=== PATIENT | male | born 1950 | race Caucasian/White ===

== ENCOUNTER 2016-11-16 09:44 | Emergency (ER) | payer OTHER ==
[2016-11-16 09:44] VITALS: BMI 20.3
== END 2016-11-16 10:27 | disposition left against medical advice (07) ==
LOC: C.ER 09:44
DX: M54.9 Dorsalgia, unspecified (principal); Z02.9 Encounter for administrative examinations, unspecified

== ENCOUNTER 2017-01-30 22:03 | Inpatient (IN) | payer MEDICAID, OTHER ==
[2017-01-30 22:03] VITALS: BMI 20.3
--- NOTE | 2017-01-30 22:17 | C.PDOC ---
History Of Present Illness Patient presents to the ED via EMS for evaluation of alcohol intoxication for an unknown duration. Patient also states that he is depressed. He denies suicidal/homicidal ideation or plan at this time. Time Seen by Provider: 01/30/17 22:17 Chief Complaint (Nursing): Psychiatric Evaluation History Per: Patient History/Exam Limitations: intoxication Onset/Duration Of Symptoms: Unknown Current Symptoms Are (Timing): Still Present Suicide/Self Injury Attempted (Context): None Modifying Factor(s): Alcohol Severity: None Pain Scale Rating Of: 0 Associated Symptoms: Depression. denies: Suicidal Thoughts, Suicidal Plan Involuntary Hold By: None Recent travel outside of the [place]: No Additional History Per: Patient Past Medical History Reviewed: Historical Data, Nursing Documentation, Vital Signs Vital Signs: Last Vital Signs Temp 97.4 F L 01/31/17 03:03 Pulse 70 01/31/17 03:03 Resp 16 01/31/17 03:03 BP 115/74 01/31/17 03:03 Pulse Ox 99 01/31/17 03:03 - Medical History PMH: Depression, HTN (no medications) Surgical History: No Surg Hx - [facility] Procedures CLOSURE SKIN & SUBCUTANEOUS NEC (09/28/14) Family History: States: Unknown Family Hx - Social History Hx Tobacco Use: No Hx Alcohol Use: Yes Hx Substance Use: No - Immunization History Hx Tetanus Toxoid Vaccination: No Hx Influenza Vaccination: No Hx Pneumococcal Vaccination: No Review Of Systems Constitutional: Negative for: Fever, Chills Cardiovascular: Negative for: Chest Pain, Palpitations Respiratory: Negative for: Cough, Shortness of Breath Gastrointestinal: Negative for: Nausea, Vomiting, Abdominal Pain Skin: Negative for: Rash, Lesions, Jaundice, Bruising Neurological: Negative for: Weakness, Numbness Psych: Positive for: Depression. Negative for: Suicidal ideation Physical Exam - Physical Exam Appears: No Acute Distress, Other (visibly intoxicated ) Skin: Warm, Dry Head: Normacephalic Eye(s): bilateral: Normal Inspection Oral Mucosa: Moist, Other (alcohol on breath ) Neck: Supple Chest: Symmetrical Cardiovascular: Rhythm Regular, No Murmur Respiratory: No Rales, No Rhonchi, No Wheezing Extremity: Normal ROM Extremity: Bilateral: Atraumatic Neurological/Psych: Other (arousable to touch and verbal stimuli ) Gait: Unsteady ED Course And Treatment - Laboratory Results Result Diagrams: 01/30/17 22:27 01/30/17 22:27 O2 Sat by Pulse Oximetry: 96 (on RA ) Pulse Ox Interpretation: Normal Progress Note: labs ordered and reviewed. Patient received Ativan PO. ED OBSERVATION Date of observation admission: 01/30/17 Time of observation admission: 22:32 - Observation admission statement Patient is being placed in observation because:: acute alcohol intoxication - Goals of Observation Goals of observation are:: sobriety, crisis evaluation - Progress Note Progress Note: 01/30/17 22:32 vitals stable 01/31/17 02:22 arousable Disposition Discussed With Dr.: Emil Cyr Comment: accepted the pt on his service and took over the care at 6:33 AM Counseled Patient/Family Regarding: Studies Performed, Diagnosis - Disposition Disposition: HOSPITALIZED Disposition Time: 22:17 Condition: FAIR - POA Present On Arrival: None - Clinical Impression Clinical Impression: Alcohol intoxication, Alcohol abuse, Major depression - Scribe Statement The provider has reviewed the documentation as recorded by the Scribe (Shalini Page) Provider Attestation: All medical record entries made by the Scribe were at my direction and personally dictated by me. I have reviewed the chart and agree that the record accurately reflects my personal performance of the history, physical exam, medical decision making, and the department course for this patient. I have also personally directed, reviewed, and agree with the discharge instructions and disposition. Decision To Admit - Pt Status Changed To: Hospital Disposition Of: Inpatient - Admit Certification Admit to Inpatient:: After my assessment, the patient will require hospitalization for at least two midnights. This is because of the severity of symptoms shown, intensity of services needed, and/or the medical risk in this patient being treated as an outpatient. - InPatient: Physician Admission Certification: I certify that this patient requires 2 or more midnights of care for the following reason:: After my assessment, the patient will require hospitalization for at least two midnights. This is because of the severity of symptoms shown, intensity of services needed, and/or the medical risk in this patient being treated as an outpatient. - . Bed Request Type: Psychiatry Admitting Physician: Emil Cyr Patient Diagnosis: Alcohol intoxication, Alcohol abuse, Major depression
[2017-01-30 22:30] LABS: BASO % 1.2 % (0.0-2.0); EOS # 0.1 K/uL (0.0-0.7); EOS % 2.7 % (0.0-4.0); HEMATOCRIT 37.5 % (35.0-51.0); LYMPH % 49.8 % (20.0-40.0); MEAN CELL VOLUME 94.5 fL (80.0-94.0); MEAN CORPUSCULAR HEMOGLOBIN 32.7 pg (27.0-31.0); MEAN CORPUSCULAR HGB CONC 34.7 g/dL (33.0-37.0); MEAN PLATELET VOLUME 7.2 fL (7.2-11.7); MONO # 0.5 K/uL (0.0-0.8); MONO % 11.2 % (0.0-10.0); RED CELL DISTRIBUTION WIDTH 13.4 % (11.5-14.5); WHITE BLOOD COUNT 4.1 K/uL (4.8-10.8)
[2017-01-30 22:38] LABS: CHLORIDE 105 mmol/L (98-107); POTASSIUM 3.8 mmol/L (3.6-5.2); SODIUM 147 mmol/L (132-148)
[2017-01-30 22:40] LABS: GFR AFRICAN-AMERICAN > 60
[2017-01-30 22:41] LABS: ALB/GLOB RATIO 1.5 (1.0-2.1); ALKALINE PHOSPHATASE 52 U/L (38-126); ALT/SGPT 45 U/L (21-72); AST/SGOT 54 U/L (17-59); BILIRUBIN,TOTAL 0.3 mg/dL (0.2-1.3); BLOOD UREA NITROGEN 7 mg/dL (9-20); CARBON DIOXIDE 25 mmol/L (22-30); GLUCOSE,RANDOM 90 mg/dL (75-110); TOTAL PROTEIN 7.3 g/dL (6.3-8.3)
[2017-01-30 22:42] LABS: ALCOHOL SERUM 276 mg/dl (0-10)
[2017-01-31 00:54] LABS: URINE BILIRUBIN NEGATIVE (NEGATIVE); URINE BLOOD NEGATIVE (NEGATIVE); URINE COLOR Straw (YELLOW); URINE GLUCOSE (UA) NORMAL (Normal); URINE KETONE NEGATIVE (NEGATIVE); URINE LEUKOCYTE ESTERASE NEG Leu/uL (Negative); URINE PROTEIN NEGATIVE (NEGATIVE); URINE UROBILINOGEN NORMAL mg/dL (0.2-1.0); WBC URINE < 1 /hpf (0-5)
[2017-01-31 06:47] VITALS: O2SAT 98
--- NOTE | 2017-01-31 08:34 | PCM.BM ---
<Trudy Fajardo - Last Filed: 01/31/17 08:31> Treatment Plan Problems - Problems identified on initial assessmt Depression Date Initiated: 01/31/17 Time Initiated: 08:31 Assessment reference: NA Status: Active Alcohol Abuse Date Initiated: 01/31/17 Time Initiated: 08:31 Assessment reference: NA Status: Active Treatment assets and liabiliti Patient Assests: cooperative, ADL independent, negotiates basic needs, cognitively intact Patient Liabilities: live alone, financial problems, substance abuse (Alcohol, BAL 276) - Milieu Protocol Maintain good personal hygiene: daily Encourage regular showers, daily Remind patient to perform daily oral care, other Assist patient to perform ADL's (Self) Conduct patient checks and document Observation sheet: Q15 minutes (Safety) Maintain personal safety: every shift Educate patient to report safety concerns to staff, every shift Monitor environment for contraband/sharps Medication safety: Monitor for expected outcome, potential side effects: every shift, Assess barriers to learning: every shift, Assess readiness for medication education: every shift <Emil Cyr - Last Filed: 01/31/17 21:44> - Diagnosis (1) Alcohol dependence Status: Acute Interventions: 01/31/17 21:44 Medication Motivation interview for abstinence CBT (2) Major depression, recurrent Status: Acute Interventions: 01/31/17 21:46 Medications Supportive therapy <Luanne Zavala - Last Filed: 02/01/17 10:41> Family Contact Family involvement: Family/SO is involved Family contact: Patient agrees to contact Family contact name: Austin Duenas-son Family contacted how many times per week?: 1 Family contact comment: Unable to contact pt's son. - Goals for Treatment Patient goals for treatment: "I want to go back to [place]." Patient's family/SO goals for treatment: Unknown Discharge/Continuing Care - Education Needs Education Needs: Patient Medication, Patient Coping Skills, Patient Placement options, Patient Community resources - Discharge Discharge Criteria: Tolerates medication w/o severe side effects, Free of Suicidal thoughts, No longer exhibiting s/s of withdrawal, Reduction of target symptoms Discharge to:: Home, With Family - Treatment Team Participation Discussed with Family/SO: No Was Patient/Family/SO present at Treatment Team Meeting: Yes <Kulwant Duarte - Last Filed: 02/01/17 10:50> - Diagnosis (1) Alcohol dependence Status: Acute Interventions: 01/31/17 21:44 Medication Motivation interview for abstinence CBT 02/01/17 10:49 * Assess 7x/week regarding severity of withdrawal * Educate regarding risks, benefits, side effects and alternatives of medications * Use Motivational Interviewing for abstinence * Use CBT for relapse prevention * Medication management for withdrawal symptoms * Encourage medication assisted treatment * (2) Major depression Status: Acute Interventions: 02/01/17 10:50 * Assess/adjust medications daily and /or as needed * See patient on an individual basis 7x/week to assess symptoms of depression * Monitor for side effects & effectiveness of medications *
--- NOTE | 2017-01-31 21:38 | PCM.PSYCH ---
Initial Psychiatric Evaluation - Initial Psychiatric Evaluation Type of Admission: Voluntary Legal Status: Capacity Chief Complaint (in patient's own words): I want to go home History of Present Illness and Precipitating Events: Patient is a 66 years old male who was brought to the ER at [facility] ([facility]) by [facility] because of suicidal ideations, depression and alcohol drinking. Patient was a poor historian and was very difficult to obtain history from him. Patient was evaluated using translation form for French as patient was unable to explain in Albanian. According to history patient was depressed and expressed suicidal ideations when he was sober and requested for admission. .Today patient denied for any depression or suicidal ideations and requesting discharge from the hospital. Patient was very guarded, was not providing any details about drinking Alcohol, depression or suicidal ideations or any other psychiatric symptoms. Patient was very uncooperative. Current Medications: Active Medications Generic Name Dose Route Start Last Admin Trade Name Freq PRN Reason Stop Dose Admin Lorazepam 1 mg 01/31/17 12:07 01/31/17 21:05 Ativan PO 1 mg Q6 PRN Administration Anxiety Pneumococcal Polyvalent Vaccine 0.5 ml 02/03/17 10:00 Pneumovax 23 Vaccine IM 02/03/17 10:01 .ONCE ONE Past Psychiatric History - Past Psychiatric History History of Abuse: None reported History of ETOH/Drug Use: See HPI History of Family Illness: Reported history of alcohol use in his family Pertinent Medical Hx (Current Medical&Sleep Prob, Allergies): Allergies Allergy/AdvReac Type Severity Reaction Status Date / Time No Known Allergies Allergy Verified 01/30/17 22:15 No Known Home Med 06/21/15 Review of Systems - Psychiatric Psychiatric: Depression Mental Status Examination - Personal Presentation Personal Presentation: Looks stated age - Affect Affect: Depressed - Motor Activity Motor Activity: Calm - Reliability in Providing Information Reliability in Providing Information: Fair - Speech Speech: Disorganized - Mood Mood: Depressed - Formal Thought Process Formal Thought Process: Flight of ideas - Hallucinations/Delusions Hallucinations: Other (None report) Delusions: Other - Obsessions/Compulsions Obsessions: None Compulsions: None - Cognitive Functions Orientation: Person, Place, Time Sensorium: Alert Attention/Concentration: Attentive Abstract Thinking: [place] Estimate of Intelligence: Average Judgement: Intact, as evidence by: Other Memory: Recent intact, as evidence by: 3/3 object recall, Remote intact, as evidenced by: Ability to recall historical events - Risk Risk: Withdrawal, Diminished functioning - Strength & Assets Inventory Strength & Assets Inventory: Family support (Lives with his son) - Limitations Limitations: Other DSM 5 DX - DSM 5 DSM 5 Diagnosis: Alcohol use disorder severe Major depressive disorder recurrent severe - Recommended/Plan of Treatment Treatment Recommendations and Plan of Treatment: Patient education Supportive therapy Will start Celexa for depression Librium detox protocol for alcohol withdrawal symptoms Multivitamin Folic acid Thiamine Other as needed medication Projected ELOS: 8-10 days - Smoking Cessation Smoking Cessation Initiated: No
[2017-02-01 07:58] VITALS: BP 125/87; PULSE 111; RESP 18; TEMP 97.7
[2017-02-01] MEDS ORDERED: Multiple Vitamins Tab PO SCH (10:00)
--- NOTE | 2017-02-01 10:48 | PCM.PYCHDC ---
Mental Status Examination - Mental Status Examination Orientation: Person, Place, Situation, Time Discharge Summary - Discharge Note Consultations:: List each consultation separately and include: 1. Reason for request. 2. Findings. 3. Follow-up Summary of Hospital Course include:: 1. Description of specific treatment plan utilized for patients during their course of treatmen. 2. Summarize the time- course for resolution of acute symptoms and/or regressed behaviors. 3. Describe issues identified and worked on during hospitalization. 4. Describe medication utilized. 5. Describe medical problems identified and treated. 6. Reassessment of suicide risk - Final Diagnosis (DSM 5) Condition upon Discharge: FAIR Disposition: HOME/ ROUTINE
[2017-02-03] MEDS ORDERED: Pneumococcal 23-Valent Vaccine IM ONE (10:00)
== END 2017-02-01 11:30 | disposition home or self-care (01) | DRG 750 ==
LOC: C.ER 22:03 → C.9OBSV 22:31 → OBSVTOIN 01-31 06:32 → C.9E 01-31 06:40 → C.5E 01-31 07:51
DX: F10.220 Alcohol dependence with intoxication, uncomplicated (principal); F33.2 Major depressive disorder, recurrent severe without psychotic features; R45.851 Suicidal ideations; I10 Essential (primary) hypertension; Y90.8 Blood alcohol level of 240 mg/100 ml or more

== ENCOUNTER 2017-04-20 09:09 | Emergency (ER) | payer MEDICAID, OTHER ==
[2017-04-20 09:09] VITALS: BMI 20.3
[2017-04-20 09:20] VITALS: TEMP 98.2
[2017-04-20] MEDS ORDERED: Sodium Chloride 0.9% 1,000 ML IV ONE (09:41)
[2017-04-20] MEDS ORDERED: Sodium Chloride 0.9% 1,000 ML ONE (09:48)
[2017-04-20 10:01] LABS: HEMATOCRIT 39.7 % (35.0-51.0); LYMPH # 0.7 K/uL (1.0-4.3); LYMPH % 15.3 % (20.0-40.0); MEAN CELL VOLUME 95.8 fL (80.0-94.0); MEAN CORPUSCULAR HEMOGLOBIN 32.6 pg (27.0-31.0); MEAN PLATELET VOLUME 7.4 fL (7.2-11.7); MONO # 0.4 K/uL (0.0-0.8); MONO % 9.1 % (0.0-10.0); NRBC % 0.1 % (0.0-2.0); WHITE BLOOD COUNT 4.3 K/uL (4.8-10.8)
[2017-04-20 10:23] VITALS: RESP 20
[2017-04-20 10:28] LABS: ALKALINE PHOSPHATASE 50 U/L (38-126); ALT/SGPT 60 U/L (21-72); AST/SGOT 59 U/L (17-59); BLOOD UREA NITROGEN 11 mg/dL (9-20); CALCIUM 8.9 mg/dl (8.6-10.4); CARBON DIOXIDE 28 mmol/L (22-30); CHLORIDE 101 mmol/L (98-107); GFR AFRICAN-AMERICAN > 60; GLUCOSE,RANDOM 98 mg/dL (75-110); POTASSIUM 3.3 mmol/L (3.6-5.2); SODIUM 139 mmol/L (132-148); TOTAL PROTEIN 8.3 g/dL (6.3-8.3)
[2017-04-20 10:29] LABS: ALB/GLOB RATIO 1.2 (1.0-2.1)
[2017-04-20] MEDS ORDERED: Iodixanol 320 MG/ML 100 ML BOTTLE IV ONE (10:38)
--- NOTE | 2017-04-20 10:42 | C.PDOC ---
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 Patient states he was carrying a heavy bag when developed pain over the right groin associated with swelling " something was popping out". Pt admits, similar sx in past and have been intermittent for the past few weeks. Otherwise, Patient denies known direct trauma or injury, headache, dizziness, fever, chest pain, SOB, abd. pain, nausea, vomiting, diarrhea, back pain, UTI sx, incontinence, saddle anesthesia, denies weakness or numbness to B/L LEs. At the time of evaluation, pt appears comfortable, not in any apparent distress. Time Seen by Provider: 04/20/17 09:15 Chief Complaint (Nursing): Groin Pain History Per: Patient History/Exam Limitations: no limitations Onset/Duration Of Symptoms: Sudden Onset (TECHNOLOGY TRAINER) Past Medical History Reviewed: Historical Data, Nursing Documentation, Vital Signs Vital Signs: Last Vital Signs Temp 98.2 F 04/20/17 09:12 Pulse 74 04/20/17 11:40 Resp 20 04/20/17 11:40 BP 169/81 H 04/20/17 11:40 Pulse Ox 98 04/20/17 12:35 - Medical History PMH: Depression, HTN (no medications) - [facility] Procedures CLOSURE SKIN & SUBCUTANEOUS NEC (09/28/14) Family History: States: No Known Family Hx - Social History Hx Tobacco Use: No Hx Alcohol Use: Yes (BAL 276) Hx Substance Use: No - Immunization History Hx Tetanus Toxoid Vaccination: No Hx Influenza Vaccination: No Hx Pneumococcal Vaccination: No Review Of Systems Except As Marked, All Systems Reviewed And Found Negative. Constitutional: Negative for: Fever Cardiovascular: Negative for: Chest Pain Respiratory: Negative for: Shortness of Breath Gastrointestinal: Negative for: Nausea, Vomiting, Abdominal Pain, Diarrhea Genitourinary: Positive for: Other ((+) Painful swelling over the right groin) Neurological: Negative for: Weakness, Numbness Physical Exam - Physical Exam Appears: Non-toxic, No Acute Distress Skin: Warm, Dry, No Rash Head: Normacephalic Eye(s): bilateral: PERRL Nose: No Flaring Oral Mucosa: Moist Throat: No Drooling Neck: Trachea Midline, Supple Cardiovascular: Rhythm Regular, No Murmur Respiratory: No Decreased Breath Sounds, No Accessory Muscle Use, No Rales, No Rhonchi, No Stridor, No Wheezing Gastrointestinal/Abdominal: Soft, No Tenderness, No Distention, No Guarding, No Rebound, No Hernia Back: No CVA Tenderness Male Genital: Inguinal Swelling (Right, reducible) Extremity: Normal ROM, No Pedal Edema, No Swelling Neurological/Psych: Oriented x3, Normal Speech, Normal Motor, Normal Sensation, Normal Reflexes ED Course And Treatment - Laboratory Results Result Diagrams: 04/20/17 09:56 04/20/17 09:56 Lab Interpretation: Normal O2 Sat by Pulse Oximetry: 98 (RA) Pulse Ox Interpretation: Normal - CT Scan/US CT - Abd & Pelvis w/ IV Contrast Other Rad Studies (CT/US): Read By Radiologist, Radiology Report Reviewed CT/US Interpretation: PROCEDURE: CT Abdomen and Pelvis with contrast. HISTORY : abd pain. COMPARISON: None available. TECHNIQUE: Contrast dose: 100 cc Visipaque 320. Radiation dose: Total exam DLP = 387.57 mGy-cm. This CT exam was performed using one or more of the following dose reduction techniques: Automated exposure control, adjustment of the mA and/or kV according to patient size, and/or use of iterative reconstruction technique. FINDINGS: LOWER THORAX : No visible consolidation, pleural effusion, or pneumothorax. LIVER: Unremarkable unenhanced appearance. GALLBLADDER AND BILE DUCTS: Unremarkable unenhanced appearance. PANCREAS: Unremarkable unenhanced appearance. SPLEEN: Sub cm probable splenules. Unremarkable unenhanced appearance. ADRENALS: Unremarkable unenhanced appearance. KIDNEYS AND URETERS: The kidneys enhance symmetrically. No hydronephrosis or obstructing calculus identified. Two probable right renal cysts including a renal cyst containing 5 mm associated calcification. VASCULATURE: No aortic aneurysm. BOWEL: Stomach is nondistended. Lack of oral contrast limits evaluation for bowel pathology. Bowel loops appear within normal limits of caliber without evidence of obstruction. APPENDIX: The appendix appears within normal limits of caliber. No secondary signs of acute appendicitis. PERITONEUM: No significant free fluid. No definite free air. LYMPH NODES: No bulky adenopathy. BLADDER: Unremarkable. REPRODUCTIVE: Heterogeneous prostate gland with coarse calcifications. BONES: Mild degenerative changes. OTHER FINDINGS: None. IMPRESSION: Two probable right renal cysts including renal cysts which contains 5 mm associated calcification. Heterogeneous prostate gland contains close calcifications. Recommend correlation with PSA. Additional incidental findings as above. Progress Note: On re-eval, pt is afebrile, hemodynamicaly stable. NOn-toxic. Tolerate PO well in ED. Neck: SUpple,. Lungs: CTA B/L, BS equal B/L. CVS: (+) S1S2, reg. Abd: Benign, (-) guarding, (-) rebound. Back: (-) CVA tenderness. Blood work review- karen cute abnoramlities. CT abd/plevis- no acute findings. Pt has clinical findings c/w Right inguinal hernia, reducible. Pt advised. ref. to F/u with PMD, Surgery in 2-3 days for re-eavl. return to ED if any worsening ro new changes. Medical Decision Making Medical Decision Making: Plan: * CT - Abd & Pelvis w/ IV Contrast * CBC * CMP * Urinalysis * Toradol IVP * Sodium Chloride IV Disposition Counseled Patient/Family Regarding: Diagnosis, Need For Followup, Rx Given - Disposition Referrals: [facility] [Outside] Mahesh Jennings MD [Staff Provider] - Disposition: HOME/ ROUTINE Disposition Time: 11:48 Condition: STABLE Additional Instructions: AVOID HEAVY LIFTING SUPPORTIVE UNDER RUVALCABA FOLLOW UP WITH PMD, SURGERY IN 2-3 DAYS FOR FURTHER EVALUATION AND ELECTIVE SURGERY RETURN TO ED IF ANY WORSENING OR NEW CHANGES. 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 - Scribe Statement The provider has reviewed the documentation as recorded by the Scribe Erica Castro All medical record entries made by the Scribe were at my direction and personally dictated by me. I have reviewed the chart and agree that the record accurately reflects my personal performance of the history, physical exam, medical decision making, and the department course for this patient. I have also personally directed, reviewed, and agree with the discharge instructions and disposition.
[2017-04-20 11:40] VITALS: BP 169/81; PULSE 74
[2017-04-20 11:45] VITALS: O2SAT 98
[2017-04-20 11:45] LABS: RBC URINE < 1 /hpf (0-3); URINE BILIRUBIN NEGATIVE (NEGATIVE); URINE BLOOD NEGATIVE (NEGATIVE); URINE COLOR Straw (YELLOW); URINE GLUCOSE (UA) NORMAL (Normal); URINE KETONE NEGATIVE (NEGATIVE); URINE LEUKOCYTE ESTERASE NEG Leu/uL (Negative); URINE PROTEIN NEGATIVE (NEGATIVE); URINE UROBILINOGEN NORMAL mg/dL (0.2-1.0); WBC URINE 1 /hpf (0-5)
--- NOTE | 2017-04-20 11:46 | CT ---
PROCEDURE: CT Abdomen and Pelvis with contrast HISTORY: abd pain COMPARISON: None available TECHNIQUE: Contrast dose: 100 cc Visipaque 320 Radiation dose: Total exam DLP = 387.57 mGy-cm. This CT exam was performed using one or more of the following dose reduction techniques: Automated exposure control, adjustment of the mA and/or kV according to patient size, and/or use of iterative reconstruction technique. FINDINGS: LOWER THORAX: No visible consolidation, pleural effusion, or pneumothorax. LIVER: Unremarkable unenhanced appearance. GALLBLADDER AND BILE DUCTS: Unremarkable unenhanced appearance. PANCREAS: Unremarkable unenhanced appearance. SPLEEN: Sub cm probable splenules. Unremarkable unenhanced appearance. ADRENALS: Unremarkable unenhanced appearance. KIDNEYS AND URETERS: The kidneys enhance symmetrically. No hydronephrosis or obstructing calculus identified. Two probable right renal cysts including a renal cyst containing 5 mm associated calcification. VASCULATURE: No aortic aneurysm. BOWEL: Stomach is nondistended. Lack of oral contrast limits evaluation for bowel pathology. Bowel loops appear within normal limits of caliber without evidence of obstruction. APPENDIX: The appendix appears within normal limits of caliber. No secondary signs of acute appendicitis. PERITONEUM: No significant free fluid. No definite free air. LYMPH NODES: No bulky adenopathy. BLADDER: Unremarkable. REPRODUCTIVE: Heterogeneous prostate gland with coarse calcifications. BONES: Mild degenerative changes. OTHER FINDINGS: None. IMPRESSION: Two probable right renal cysts including renal cysts which contains 5 mm associated calcification. Heterogeneous prostate gland contains close calcifications. Recommend correlation with PSA. Additional incidental findings as above.
[2017-04-20] MEDS ORDERED: Potassium Chloride 20 mEq ER Tab PO STA (11:53)
[2017-04-20] MEDS ORDERED: Potassium Chloride 20 mEq ER Tab PO ONE (11:56)
== END 2017-04-20 12:18 | disposition home or self-care (01) ==
LOC: C.ER 09:09
DX: K40.90 Unilateral inguinal hernia, without obstruction or gangrene, not specified as recurrent (principal); E87.6 Hypokalemia
CPT/HCPCS: 74177; 80053; 81001; 83690; 85025; 85610; 85730; 96361; 96374; 99284; J1885; J7040; Q9967

== ENCOUNTER 2017-09-21 10:49 | Emergency (ER) | payer OTHER ==
[2017-09-21 10:49] VITALS: BMI 20.3
[2017-09-21 10:56] VITALS: BP 157/102; PULSE 106; RESP 18; TEMP 98.3; O2SAT 97
--- NOTE | 2017-09-21 11:36 | C.PDOC ---
History Of Present Illness 66-year-old male, presents to the emergency department with complaints of diffuse rash throughout body since yesterday afternoon. Patient reports associated itching. Patient denies any nausea/vomiting, fever. Time Seen by Provider: 09/21/17 10:58 Chief Complaint (Nursing): Abnormal Skin Integrity History Per: Patient History/Exam Limitations: no limitations Onset/Duration Of Symptoms: Days Current Symptoms Are (Timing): Still Present Past Medical History Reviewed: Historical Data, Nursing Documentation, Vital Signs Vital Signs: Last Vital Signs Temp 98.3 F 09/21/17 10:52 Pulse 106 H 09/21/17 10:52 Resp 18 09/21/17 10:52 BP 157/102 H 09/21/17 10:52 Pulse Ox 97 09/21/17 11:36 - Medical History PMH: Depression, HTN (no medications) Denies: Diabetes, Hepatitis, HIV, Chronic Kidney Disease, Seizures, Sexually Transmitted Disease - [facility] Procedures CLOSURE SKIN & SUBCUTANEOUS NEC (09/28/14) Family History: States: No Known Family Hx - Social History Hx Tobacco Use: No Hx Alcohol Use: Yes Hx Substance Use: No - Immunization History Hx Tetanus Toxoid Vaccination: No Hx Influenza Vaccination: No Hx Pneumococcal Vaccination: No Review Of Systems Constitutional: Negative for: Fever, Chills Cardiovascular: Negative for: Chest Pain, Palpitations Respiratory: Negative for: Shortness of Breath Gastrointestinal: Negative for: Vomiting Skin: Positive for: Rash Neurological: Negative for: Headache, Dizziness Physical Exam - Physical Exam Appears: Non-toxic, No Acute Distress Skin: Normal Color, Warm, Dry, Rash (diffuse, maculopapular rash to back, abdomen and extremities. sparing palms and soles) Head: Normacephalic Eye(s): bilateral: PERRL Nose: Normal Oral Mucosa: Moist Tongue: No Swelling Lips: Normal Appearing, No Swelling Throat: No Drooling, No Mass Neck: Normal ROM Chest: Symmetrical Cardiovascular: Rhythm Regular, No Murmur Respiratory: Normal Breath Sounds, No Accessory Muscle Use Gastrointestinal/Abdominal: Soft, No Tenderness Extremity: Normal ROM, No Deformity, No Swelling Neurological/Psych: Oriented x3, Normal Speech ED Course And Treatment O2 Sat by Pulse Oximetry: 97 (RA) Pulse Ox Interpretation: Normal Progress Note: Patient eloped prior to treatment. Disposition - Disposition Disposition: ELOPEMENT - ER ONLY Disposition Time: 11:35 Condition: STABLE Forms: [facility] (Chinese) - Clinical Impression Clinical Impression: Maculopapular rash - Scribe Statement The provider has reviewed the documentation as recorded by the Scribe (Germain Nelson) All medical record entries made by the Scribe were at my direction and personally dictated by me. I have reviewed the chart and agree that the record accurately reflects my personal performance of the history, physical exam, medical decision making, and the department course for this patient. I have also personally directed, reviewed, and agree with the discharge instructions and disposition.
== END 2017-09-21 11:50 | disposition left against medical advice (07) ==
LOC: C.ER 10:49
DX: R21 Rash and other nonspecific skin eruption (principal)

== ENCOUNTER 2017-12-27 09:20 | Emergency (ER) | payer MEDICARE, OTHER ==
[2017-12-27 09:20] VITALS: BMI 20.3
[2017-12-27 09:31] VITALS: BP 115/80; PULSE 86; RESP 20; TEMP 97.4; O2SAT 98
--- NOTE | 2017-12-27 10:05 | C.PDOC ---
History Of Present Illness 67 year old male presents to the emergency department with complaints of intermittent groin pain that has been present for the past 3 months. The patient states the pain has worsened last night and noticed a bulge in the groin area but he reports he was able to push it back in. Patient denies any nausea, vomiting, dysuria, penile discharge, fever, or chills. Time Seen by Provider: 12/27/17 09:44 Chief Complaint (Nursing): Groin Pain History Per: Patient History/Exam Limitations: no limitations Onset/Duration Of Symptoms: Days Current Symptoms Are (Timing): Still Present Past Medical History Reviewed: Historical Data, Nursing Documentation, Vital Signs Vital Signs: Last Vital Signs Temp 97.4 F L 12/27/17 09:34 Pulse 86 12/27/17 09:34 Resp 20 12/27/17 09:34 BP 115/80 12/27/17 09:34 Pulse Ox 98 12/27/17 10:26 - Medical History PMH: Depression, HTN (no medications) Denies: Diabetes, Hepatitis, HIV, Chronic Kidney Disease, Seizures, Sexually Transmitted Disease - [facility] Procedures CLOSURE SKIN & SUBCUTANEOUS NEC (09/28/14) Family History: States: No Known Family Hx - Social History Hx Tobacco Use: No Hx Alcohol Use: Yes Hx Substance Use: No - Immunization History Hx Tetanus Toxoid Vaccination: No Hx Influenza Vaccination: No Hx Pneumococcal Vaccination: No Review Of Systems Except As Marked, All Systems Reviewed And Found Negative. Genitourinary: Positive for: Other (Intermittent groin pain) Physical Exam - Physical Exam Appears: Non-toxic, No Acute Distress Skin: Normal Color, Warm, Dry Head: Atraumatic, Normacephalic Eye(s): bilateral: Normal Inspection, PERRL, EOMI Oral Mucosa: Moist Neck: Supple Chest: Symmetrical Cardiovascular: Rhythm Regular, No Murmur Respiratory: Normal Breath Sounds, No Rales, No Rhonchi, No Wheezing Gastrointestinal/Abdominal: Normal Exam, Soft, No Tenderness Male Genital: Other (Both testes distended; normal penile shaft; no lesions; R side hernia reducible ) Extremity: Bilateral: Atraumatic, Normal Color And Temperature, Normal ROM Neurological/Psych: Oriented x3, Normal Speech ED Course And Treatment O2 Sat by Pulse Oximetry: 98 (RA) Pulse Ox Interpretation: Normal Progress Note: Hernia case was discussed with surgical services tech to follow up with surgery and instructed patient to make an appointment today. Patient understands and states he will call for an appointment and will immediately follow up with Dr. Cortes. Disposition Counseled Patient/Family Regarding: Diagnosis, Need For Followup, Rx Given - Disposition Referrals: Honorio Cortes MD [Staff Provider] - Disposition: HOME/ ROUTINE Disposition Time: 10:02 Condition: STABLE Additional Instructions: you need to follow up with Dr. Cortes call office today to make an appointment take pain medication as needed return to ER if symptoms worsens or progress Prescriptions: Naproxen [Naprosyn] 500 mg PO BID PRN #16 tab PRN Reason: Pain, Moderate (4-7) Instructions: Groin Hernia (DC) Forms: Gen Discharge Inst Canadian, [employer] [facility] (Canadian), Work Excuse Print Language: ANGUILLAN - Clinical Impression Clinical Impression: Hernia - Scribe Statement The provider has reviewed the documentation as recorded by the Anjelica Ruelas Provider Attestation: All medical record entries made by the Francisibgabriel were at my direction and personally dictated by me. I have reviewed the chart and agree that the record accurately reflects my personal performance of the history, physical exam, medical decision making, and the department course for this patient. I have also personally directed, reviewed, and agree with the discharge instructions and disposition.
== END 2017-12-27 10:12 | disposition home or self-care (01) ==
LOC: C.ER 09:20
DX: K46.9 Unspecified abdominal hernia without obstruction or gangrene (principal)

== ENCOUNTER 2017-12-30 19:07 | Emergency (ER) | payer MEDICARE, OTHER ==
[2017-12-30 19:08] VITALS: BMI 20.3
[2017-12-30 19:42] VITALS: BP 123/78; PULSE 79; RESP 16; TEMP 97.6; O2SAT 98
--- NOTE | 2017-12-30 19:59 | C.PDOC ---
History Of Present Illness 67 year old male presents to the ED c/o right inguinal hernia that has been persistent and constant. Patient denies fever, chills, nausea, vomit, abdominal pain, diarrhea, dysuria, hematuria, back pain. Chief Complaint (Nursing): Male Genitourinary History Per: Patient History/Exam Limitations: no limitations Onset/Duration Of Symptoms: Days Current Symptoms Are (Timing): Still Present Quality Of Discomfort: "Pain" Associated Symptoms: denies: Nausea, Vomiting, Diarrhea, Urinary Symptoms Recent travel outside of the [place]: No Additional History Per: Patient Past Medical History Reviewed: Historical Data, Nursing Documentation, Vital Signs Vital Signs: Last Vital Signs Temp 97.6 F 12/30/17 19:30 Pulse 79 12/30/17 19:30 Resp 16 12/30/17 19:30 BP 123/78 12/30/17 19:30 Pulse Ox 98 12/30/17 20:00 - Medical History PMH: Depression, HTN (no medications) Denies: Diabetes, Hepatitis, HIV, Chronic Kidney Disease, Seizures, Sexually Transmitted Disease Surgical History: No Surg Hx - [facility] Procedures CLOSURE SKIN & SUBCUTANEOUS NEC (09/28/14) Family History: States: Unknown Family Hx - Social History Hx Tobacco Use: No Hx Alcohol Use: Yes Hx Substance Use: No - Immunization History Hx Tetanus Toxoid Vaccination: No Hx Influenza Vaccination: No Hx Pneumococcal Vaccination: No Review Of Systems Constitutional: Negative for: Fever, Chills Cardiovascular: Negative for: Chest Pain, Palpitations Respiratory: Negative for: Cough, Shortness of Breath Gastrointestinal: Negative for: Nausea, Vomiting, Abdominal Pain Genitourinary: Positive for: Other (inguinal hernia). Negative for: Dysuria, Hematuria Neurological: Negative for: Weakness, Numbness Physical Exam - Physical Exam Appears: Non-toxic, No Acute Distress Skin: Normal Color, Warm, Dry Head: Atraumatic, Normacephalic Eye(s): bilateral: Normal Inspection Neck: Normal ROM, Supple Chest: Symmetrical Cardiovascular: Rhythm Regular Respiratory: Normal Breath Sounds, No Rales, No Rhonchi, No Wheezing Gastrointestinal/Abdominal: Soft, No Tenderness, No Guarding, No Rebound Male Genital: Inguinal Tenderness (right inguinal hernia, reducible, not hard to touch) Extremity: Normal ROM, No Tenderness, No Swelling Neurological/Psych: Oriented x3, Normal Speech Gait: Steady ED Course And Treatment O2 Sat by Pulse Oximetry: 98 (ON RA) Pulse Ox Interpretation: Normal Disposition Counseled Patient/Family Regarding: Diagnosis - Disposition Referrals: [facility] [Outside] Disposition: HOME/ ROUTINE Disposition Time: 19:58 Condition: STABLE Instructions: Groin Hernia (DC) Forms: [facility] (Gabonese), Gen Discharge Inst Macedonian Print Language: GREENLANDIC - POA Present On Arrival: None - Clinical Impression Clinical Impression: Reducible right inguinal hernia - Scribe Statement The provider has reviewed the documentation as recorded by the Scribe Flaquito Davila All medical record entries made by the Scribe were at my direction and personally dictated by me. I have reviewed the chart and agree that the record accurately reflects my personal performance of the history, physical exam, medical decision making, and the department course for this patient. I have also personally directed, reviewed, and agree with the discharge instructions and disposition.
== END 2017-12-30 20:00 | disposition home or self-care (01) ==
LOC: C.ER 19:07
DX: K40.90 Unilateral inguinal hernia, without obstruction or gangrene, not specified as recurrent (principal)

== ENCOUNTER 2018-01-05 13:32 | Emergency (ER) | payer MEDICARE, OTHER ==
[2018-01-05 13:33] VITALS: BMI 20.3
[2018-01-05 13:47] VITALS: BP 125/72; PULSE 87; RESP 18; TEMP 98.1; O2SAT 100
--- NOTE | 2018-01-05 14:10 | C.PDOC ---
History Of Present Illness 67 y/o male presents to the ED for evaluation of enlargening right inguinal hernia, worsening for the past week. The hernia is described as painful. No associated abdominal pain, nausea, or vomiting. Patient was seen here on and for same complaint and advised to follow up with surgery. Otherwise he denies any testicular swelling/pain, dysuria, incontinence, hematuria, fever, chills, or other complaints. Time Seen by Provider: 01/05/18 13:57 Chief Complaint (Nursing): Abdominal Pain History Per: Patient History/Exam Limitations: no limitations Onset/Duration Of Symptoms: Days Current Symptoms Are (Timing): Still Present Past Medical History Reviewed: Historical Data, Nursing Documentation, Vital Signs Vital Signs: Last Vital Signs Temp 98.1 F 01/05/18 13:45 Pulse 87 01/05/18 13:45 Resp 18 01/05/18 13:45 BP 125/72 01/05/18 13:45 Pulse Ox 100 01/05/18 14:15 - Medical History PMH: Depression, HTN (no medications) Denies: Diabetes, Hepatitis, HIV, Chronic Kidney Disease, Seizures, Sexually Transmitted Disease - [facility] Procedures CLOSURE SKIN & SUBCUTANEOUS NEC (09/28/14) Family History: States: Unknown Family Hx - Social History Hx Tobacco Use: No Hx Alcohol Use: Yes Hx Substance Use: No - Immunization History Hx Tetanus Toxoid Vaccination: No Hx Influenza Vaccination: No Hx Pneumococcal Vaccination: No Review Of Systems Except As Marked, All Systems Reviewed And Found Negative. Constitutional: Negative for: Fever, Chills Respiratory: Negative for: Shortness of Breath Gastrointestinal: Positive for: Other (Inguinal hernia). Negative for: Nausea, Vomiting, Abdominal Pain Genitourinary: Negative for: Dysuria, Incontinence, Hematuria, Penile Discharge , Scrotal Pain Neurological: Negative for: Weakness, Numbness Physical Exam - Physical Exam Appears: Non-toxic, No Acute Distress Skin: Normal Color, Warm, Dry Head: Atraumatic, Normacephalic Eye(s): bilateral: Normal Inspection, PERRL, EOMI Neck: Supple Chest: Symmetrical Cardiovascular: Rhythm Regular, No Murmur Respiratory: Normal Breath Sounds, No Rales, No Rhonchi, No Wheezing Gastrointestinal/Abdominal: Soft, No Tenderness, No Distention, No Guarding Male Genital: Normal Inspection, No Testicular Tenderness, No Testicular Swelling, Other (Reducible right inguinal hernia) Extremity: Bilateral: Atraumatic, Normal Color And Temperature, Normal ROM Neurological/Psych: Oriented x3, Normal Speech ED Course And Treatment O2 Sat by Pulse Oximetry: 100 (RA) Pulse Ox Interpretation: Normal Medical Decision Making Medical Decision Making: Patient remains afebrile, AAOx3, with no abdominal tenderness on examination. There is no indication for further ED intervention. Patient is medically stable and will be discharged home, with referral to general surgery for outpatient surgical consult. Educated patient on the importance of following up with surgery for hernia repair. Disposition Counseled Patient/Family Regarding: Diagnosis, Need For Followup - Disposition Referrals: Honorio Cortes MD [Staff Provider] - Disposition: HOME/ ROUTINE Disposition Time: 14:09 Condition: STABLE Instructions: Inguinal and Femoral (Groin) Hernias Forms: [employer] (Hungarian) Print Language: FAROESE - POA Present On Arrival: None - Clinical Impression Clinical Impression: Reducible right inguinal hernia - Scribe Statement The provider has reviewed the documentation as recorded by the Scribe (Violette Lazcano) Provider Attestation: All medical record entries made by the Scribe were at my direction and personally dictated by me. I have reviewed the chart and agree that the record accurately reflects my personal performance of the history, physical exam, medical decision making, and the department course for this patient. I have also personally directed, reviewed, and agree with the discharge instructions and disposition.
== END 2018-01-05 14:18 | disposition home or self-care (01) ==
LOC: C.ER 13:32
DX: K40.90 Unilateral inguinal hernia, without obstruction or gangrene, not specified as recurrent (principal)

== ENCOUNTER 2018-04-18 19:03 | Emergency (ER) | payer MEDICARE, OTHER ==
[2018-04-18 19:03] VITALS: BMI 20.3
[2018-04-18 19:29] VITALS: RESP 20; O2SAT 98
[2018-04-18] MEDS ORDERED: Sodium Chloride 0.9% 500 ML IV ONE (19:44)
[2018-04-18] MEDS ORDERED: Sodium Chloride 0.9% 1,000 ML IV ONE (19:45)
--- NOTE | 2018-04-18 19:53 | C.PDOC ---
History Of Present Illness 67 year old male with a Hx of chronic back pain presents to the ER with a complaint of lower back pain and dysuria, associated with some diarrhea. Patient has a Hx of being incarcerated at [facility], discharged 4 days ago. Denies fe sunny, chills, hematuria, incontinence, weakness, or numbness. Chief Complaint (Nursing): Back Pain History Per: Patient History/Exam Limitations: no limitations Onset/Duration Of Symptoms: Days Current Symptoms Are (Timing): Still Present Quality Of Discomfort: Unable To Describe Previous Symptoms: Back Pain, Chronic Pain Associated Symptoms: None Recent travel outside of the [place]: No Past Medical History Reviewed: Historical Data, Nursing Documentation, Vital Signs Vital Signs: Last Vital Signs Temp 97.2 F L 04/18/18 19:23 Pulse 83 04/18/18 19:23 Resp 20 04/18/18 19:23 BP 124/85 04/18/18 19:23 Pulse Ox 98 04/18/18 19:23 - Medical History PMH: Depression, HTN (no medications) Denies: Diabetes, Hepatitis, HIV, Chronic Kidney Disease, Seizures, Sexually Transmitted Disease - [facility] Procedures CLOSURE SKIN & SUBCUTANEOUS NEC (09/28/14) Family History: States: Unknown Family Hx - Social History Hx Tobacco Use: No Hx Alcohol Use: Yes Hx Substance Use: No - Immunization History Hx Tetanus Toxoid Vaccination: No Hx Influenza Vaccination: No Hx Pneumococcal Vaccination: No Review Of Systems Constitutional: Negative for: Fever, Chills Cardiovascular: Negative for: Chest Pain, Palpitations Respiratory: Negative for: Cough, Shortness of Breath Gastrointestinal: Positive for: Diarrhea. Negative for: Nausea, Vomiting Genitourinary: Positive for: Dysuria. Negative for: Incontinence, Hematuria Musculoskeletal: Positive for: Back Pain Neurological: Negative for: Weakness, Numbness Physical Exam - Physical Exam Appears: Non-toxic Skin: Normal Color, Warm, Dry Head: Atraumatic, Normacephalic Eye(s): bilateral: Normal Inspection Oral Mucosa: Moist Neck: Normal, Supple Chest: Symmetrical, No Tenderness Cardiovascular: Rhythm Regular Respiratory: Normal Breath Sounds, No Rales, No Rhonchi, No Wheezing Gastrointestinal/Abdominal: Soft, No Tenderness Back: No CVA Tenderness Neurological/Psych: Oriented x3, Normal Speech, Normal Motor, Normal Sensation ED Course And Treatment - Laboratory Results Result Diagrams: 04/18/18 20:20 04/18/18 20:20 O2 Sat by Pulse Oximetry: 98 (room air) Pulse Ox Interpretation: Normal Progress Note: Blood work and urinalysis ordered. IV fluids and toradol administered. Disposition Counseled Patient/Family Regarding: Diagnosis - Disposition Referrals: [facility] [Outside] Disposition: HOME/ ROUTINE Disposition Time: 23:05 Condition: STABLE Instructions: Low Back Pain in Adults, Hypokalemia (DC) Forms: [employer] (Arabic) - POA Present On Arrival: None - Clinical Impression Clinical Impression: Chronic back pain, Hypokalemia - Scribe Statement The provider has reviewed the documentation as recorded by the Scribe Seymour Hines All medical record entries made by the Scribe were at my direction and personally dictated by me. I have reviewed the chart and agree that the record accurately reflects my personal performance of the history, physical exam, medical decision making, and the department course for this patient. I have also personally directed, reviewed, and agree with the discharge instructions and disposition.
[2018-04-18 20:24] LABS: BASO % 0.6 % (0.0-2.0); EOS # 0.1 K/uL (0.0-0.7); EOS % 1.3 % (0.0-4.0); HEMOGLOBIN 12.4 g/dL (12.0-18.0); LYMPH % 15.9 % (20.0-40.0); MEAN CORPUSCULAR HGB CONC 34.6 g/dL (33.0-37.0); MEAN PLATELET VOLUME 7.1 fL (7.2-11.7); MONO # 0.4 K/uL (0.0-0.8); MONO % 6.5 % (0.0-10.0); NEUT # 4.6 K/uL (1.8-7.0); NEUT % 75.7 % (50.0-75.0); RBC 3.87 Mil/uL (4.40-5.90); RED CELL DISTRIBUTION WIDTH 13.7 % (11.5-14.5)
[2018-04-18 20:28] LABS: MEAN CELL VOLUME 92.4 fL (80.0-94.0)
[2018-04-18 20:52] LABS: ALB/GLOB RATIO 1.5 (1.0-2.1); ALBUMIN 4.2 g/dL (3.5-5.0); ALT/SGPT 24 U/L (21-72); AST/SGOT 32 U/L (17-59); BLOOD UREA NITROGEN 16 mg/dL (9-20); CALCIUM 9.2 mg/dl (8.6-10.4); GFR NON-AFRICAN AMERICAN > 60
[2018-04-18 21:19] LABS: SPERM URINE OCC /hpf; SQUAMOUS EPITHIAL < 1 /hpf (0-5); URINE BACTERIA FEW (<OCC); URINE BILIRUBIN NEGATIVE (NEGATIVE); URINE BLOOD NEGATIVE (NEGATIVE); URINE CLARITY Clear (Clear); URINE COLOR Yellow (YELLOW); URINE GLUCOSE (UA) NORMAL (Normal); URINE LEUKOCYTE ESTERASE NEG Leu/uL (Negative); URINE PROTEIN NEGATIVE (NEGATIVE)
[2018-04-18 22:13] VITALS: BP 127/69; PULSE 67; TEMP 98.3
[2018-04-18] MEDS ORDERED: Potassium Chloride 20 mEq/15 ml LIQ UD PO STA (22:52)
[2018-04-18] MEDS ORDERED: Potassium Chloride 20 mEq/15 ml LIQ UD ONE (23:14)
== END 2018-04-18 23:30 | disposition home or self-care (01) ==
LOC: C.ER 19:03
DX: G89.29 Other chronic pain (principal); M54.9 Dorsalgia, unspecified; E87.6 Hypokalemia
CPT/HCPCS: 80053; 81001; 85025; 87086; 96374; 99284; J1885; J7030; J7040